=== PATIENT | male | born 1960 | race Caucasian/White ===

== ENCOUNTER → 2016-12-29 | Outpatient (CLI) | payer BC | LOC: EMI 16:08 | DX: M54.2 Cervicalgia (principal); M54.17 Radiculopathy, lumbosacral region; M47.812 Spondylosis without myelopathy or radiculopathy, cervical region; M50.20 Other cervical disc displacement, unspecified cervical region; M25.78 Osteophyte, vertebrae; M48.02 Spinal stenosis, cervical region; M51.27 Other intervertebral disc displacement, lumbosacral region; M47.817 Spondylosis without myelopathy or radiculopathy, lumbosacral region | CPT/HCPCS: 72141; 72148 ==